=== PATIENT | female | born 1980 | race Caucasian/White ===

== ENCOUNTER 2018-02-20 00:21 | Outpatient (CLI) | payer OTHER, SELFPAY ==
--- NOTE | 2018-02-20 10:15 | DI.CT_ITS ---
SYMPTOM/DIAGNOSIS: ? INCREASE IN SIZE OF FIBROID, RENAL CYST, N28.1, D25.[address]: Comparison is made with pelvic ultrasound dated 01/13/16. Images were performed from the lung bases through the ischial tuberosities after IV and oral contrast. There is a small hiatal hernia. The lung bases are clear. The patient is status post cholecystectomy. The liver, spleen, pancreas and adrenals are unremarkable. There is a cyst in the right kidney mid portion which appears simple by CT. A septation was visible by ultrasound. There is bilateral mild to moderate hydronephrosis. The findings are likely secondary to a large uterine fibroid measuring approximately 10 cm. in diameter. An IUD is noted. The ovaries are unremarkable. The bladder appears normal. The bowel is unremarkable. IMPRESSION: Right renal cyst appears simple by CT. There is bilateral hydronephrosis secondary to a large uterine fibroid.
[2018-02-20] MEDS: Omnipaque 350 MG/ML 100 ML BTL IJ (10:23)
[2018-02-20] MEDS: Breeza Beverage 473 ML BTL PO (10:24)
[2018-02-20] MEDS: Omnipaque 350 MG/ML 50 ML BTL PO (10:24)
== END 2018-02-20 00:41 ==
PROVIDERS: PCP Internal Medicine; Visit Provider Advanced Practice Midwife
DX: N28.1 Cyst of kidney, acquired (principal); N13.30 Unspecified hydronephrosis; D25.9 Leiomyoma of uterus, unspecified
CPT/HCPCS: 74177; J3490; Q9967

== ENCOUNTER 2018-06-23 10:35 | Outpatient (REF) | payer SELFPAY ==
[2018-06-23 19:35] LABS: HCT 45.6 % (36.0-46.0); Mean Corp. HGB Concentration 32.9 g/dL (32.0-36.0); Mean Corpuscular Hemoglobin 29.9 pg (27.0-33.0); Mean Corpuscular Volume 90.8 fL (80-95); Mean Platelet Volume 11.1 fL (8.0-11.0); Platelet Count 259 x1000/uL (130-400); RBC 5.02 m/cumm (4.00-5.20); RBC Distribution Width 14.6 % (11.7-14.6); White Blood Cell Count 8.85 k/cumm (4.4-10.8)
[2018-06-23 19:57] LABS: Anion Gap 9.8 mmol/L (3-11); BUN 10 mg/dL (7-18); CO2 29.2 mmol/L (21.0-32.0); CREATININE 0.75 mg/dL (0.55-1.02); Calcium 8.9 mg/dL (8.5-10.1); Chloride 104 mmol/L (98-107); Glucose 88 mg/dL (70-100); Potassium 3.6 mmol/L (3.5-5.1); Sodium 143 mmol/L (136-145); TSH 2.09 uIU/mL (0.358-3.74)
[2018-06-23 20:21] LABS: Troponin I < 0.02 ng/mL (0.00-0.06)
== END 2018-06-23 10:55 ==
LOC: NCHCN 10:35
PROVIDERS: PCP Internal Medicine; Visit Provider Nurse Practitioner Family
DX: R07.89 Other chest pain (principal); R53.83 Other fatigue
CPT/HCPCS: 80048; 85027; 84443; 84484

== ENCOUNTER 2018-07-28 11:58 | Outpatient (CLI) | payer SELFPAY ==
--- NOTE | 2018-07-31 13:14 | HOLTER_ITS ---
Date of Report: July 31, 2018 48-HOUR STUDY Baseline Rhythm: Sinus Rare single PAC. Three bursts SVT, longest 4-beat duration, fastest 145 bpm. No atrial fibrillation . Rare single PVC. One burst nonsustained VT, 4-beat duration at 145 bpm. No bradycardia. No symptoms. Average heart rate 71 bpm, range 54-138 bpm.
--- NOTE | 2018-08-04 12:09 | HOLTER_ITS ---
HOLTER MONITOR DATE OF DICTATION August 04, 2018 48-hour study Baseline rhythm was sinus rhythm. Rare single PAC. 2 bursts SVT, longest 4-beat duration, fastest 134 beats per minute. No atrial fibrillation. Rare single PVC. 1 burst nonsustained VT, 4 beat duration at 145 beats per minute. No bradycardia. No symptoms. Average heart rate 71 beats per minute, range 54-138 beats per minute. Estuardo Servin M.D. SANA/osmani T-08/04/18
== END 2018-07-28 12:18 ==
PROVIDERS: PCP Internal Medicine; Visit Provider Nurse Practitioner Family
DX: R07.89 Other chest pain (principal); I47.1 Supraventricular tachycardia; I47.2 Ventricular tachycardia
CPT/HCPCS: 93225

== ENCOUNTER 2018-07-30 14:34 | Outpatient (CLI) | payer SELFPAY | END 2018-07-30 14:54 | PROVIDERS: PCP Internal Medicine; Visit Provider Nurse Practitioner Family | DX: R07.89 Other chest pain (principal); I47.1 Supraventricular tachycardia; I47.2 Ventricular tachycardia | CPT/HCPCS: 93226 ==

== ENCOUNTER 2018-08-14 00:48 | Outpatient (CLI) | payer OTHER, SELFPAY ==
--- NOTE | 2018-08-14 10:35 | MERGE_ITS ---
*[facility]* *[facility]* [address] [place] [address] Date of study: 08/14/2018 Transthoracic Echocardiography M-mode, complete 2D, complete spectral Doppler, and color Doppler *STUDY CONCLUSIONS* Summary: 1. Left ventricle: The cavity size was normal. Systolic function was normal. The estimated ejection fraction was 60-65%. Diastolic parameters were normal. There was no evidence of elevated ventricular filling pressure by Doppler parameters. 2. Right ventricle: The cavity size was normal. Wall thickness was normal. Systolic function was normal. 3. Atrial septum: No defect or patent foramen ovale was identified. 4. Pulmonary arteries: Pulmonary systolic pressure was in the range of 20mm Hg to 30mm Hg. 5. Inferior vena cava: The vessel was patent and normal in size. The respirophasic diameter changes were in the normal range (greater than or equal to 50%), consistent with normal central venous pressure. *PATIENT PRESENTATION* Height: 162.6cm ((64in) ) S/D Pressure: 112 / 52 Weight: 102.1kg ((224.5lb) ) BSA: 2.2m^2 Test start time: 10:45 AM. Test stop time: 11:45 AM. REFERRING Estuardo Servin MD PERFORMING Unknown PERFORMING [facility] ENTRY LEVEL JAVA DEVELOPER RT Regina (R)(CT), CS CONSULTING Claudia Valenzuela ORDERING Claudia Valenzuela REFERRING Claudia Valenzuela *PROCEDURE DATA* Procedure information: The patient was identified by two identifiers. This study was interpreted by [facility]. Pertinent images and digital data are archived for permanent storage and are available for subsequent review. No prior study was available for comparison. Study status: Routine. Transthoracic echocardiography. M-mode, complete 2D, complete spectral Doppler, and color Doppler. A Transthoracic Echocardiogram was performed. Scanning was performed from the parasternal, apical, subcostal, and suprasternal notch acoustic windows. Images were obtained using an [id number] cardiac ultrasound machine. Image quality was adequate. Study completion: The patient tolerated the procedure well. History: PMH: Systolic heart murmur R01.1. *CARDIAC ANATOMY* Left ventricle: The cavity size was normal. Systolic function was normal. The estimated ejection fraction was 60-65%. The tissue Doppler parameters were normal. Diastolic parameters were normal. There was no evidence of elevated ventricular filling pressure by Doppler parameters. Aortic valve: Trileaflet. Doppler: There was no stenosis. VTI ratio of LVOT to aortic valve: 0.91. Valve area (VTI): 2.7cm^2. Indexed valve area (VTI): 1.2cm^2/m^2. Peak velocity ratio of LVOT to aortic valve: 0.9. Valve area (Vmax): 2.7cm^2. Indexed valve area (Vmax): 1.2cm^2/m^2. Mean velocity ratio of LVOT to aortic valve: 0.88. Valve area (Vmean): 2.6cm^2. Indexed valve area (Vmean): 1.2cm^2/m^2. Mean gradient (S): 5.6mm Hg. Peak gradient (S): 8.7mm Hg. Aorta: Aortic root: The aortic root was normal in size. Ascending aorta: The ascending aorta was normal in size. Mitral valve: Doppler: There was no evidence for stenosis. There was no significant regurgitation. Valve area by pressure half-time: 3.6cm^2. Indexed valve area by pressure half-time: 1.6cm^2/m^2. Left atrium: The atrium was normal in size. Atrial septum: No defect or patent foramen ovale was identified. Right ventricle: The cavity size was normal. Wall thickness was normal. Systolic function was normal. Pulmonic valve: Doppler: There was no evidence for stenosis. There was mild regurgitation. Peak gradient (S): 4.3mm Hg. Tricuspid valve: Doppler: There was mild regurgitation. Pulmonary artery: Poorly visualized. Pulmonary systolic pressure was in the range of 20mm Hg to 30mm Hg. Right atrium: The atrium was normal in size. 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 Pericardium: There was no pericardial effusion. Systemic veins: Inferior vena cava: Well visualized. The vessel was patent and normal in size. The respirophasic diameter changes were in the normal range (greater than or equal to 50%), consistent with normal central venous pressure. Baseline ECG: Bradycardia. Measurements Left ventricle Value Reference LV ID, ED, PLAX 4.9 cm 3.5 - 6.0 LV ID, ES, PLAX 3.3 cm 2.1 - 4.0 LV PW thickness, ED, PLAX 0.9 cm LV end-diastolic volume, 1-p A2C 103 ml LV ejection fraction, 1-p A2C 67 % LV end-diastolic volume, 1-p A4C 104 ml LV ejection fraction, 1-p A4C 62 % LV e', lateral 0.141 m/sec LV E/e', lateral 5 LV e', medial 0.096 m/sec LV E/e', medial 7 LV e', average 0.119 m/sec LV E/e', average 6 Ventricular septum Value Reference IVS thickness, ED, PLAX 1.1 cm LVOT Value Reference LVOT ID, A-P 2.0 cm LVOT area 3 cm^2 LVOT peak velocity, S 1.33 m/sec LVOT mean velocity, S 1.01 m/sec LVOT VTI, S 31.1 cm LVOT peak gradient, S 7.1 mm Hg LVOT mean gradient, S 4.4 mm Hg Stroke volume (SV), LVOT DP 93 ml Stroke index (SV/bsa), LVOT DP 42 ml/m^2 Aortic valve Value Reference Aortic valve peak velocity, S 1.5 m/sec Aortic valve mean velocity, S 1.15 m/sec Aortic valve VTI, S 34.0 cm Aortic mean gradient, S 5.6 mm Hg Aortic peak gradient, S 8.7 mm Hg VTI ratio, LVOT/AV 0.91 Aortic valve area, VTI 2.7 cm^2 Velocity ratio, peak, LVOT/AV 0.9 Aortic valve area, peak velocity 2.7 cm^2 Velocity ratio, mean, LVOT/AV 0.88 Aortic valve area, mean velocity 2.6 cm^2 Aortic valve area/bsa, mean velocity 1.2 cm^2/m^2 Aorta Value Reference Aortic root ID, ED 2.8 cm Ascending aorta ID, A-P, S 3.0 cm Left atrium Value Reference LA ID, A-P, ES 3.6 cm LA ID/bsa, A-P 1.6 cm/m^2 <=2.2 LA area, ES, A4C 22.1 cm^2 8.8 - 23.4 LA area, ES, A2C 19 cm^2 LA volume/bsa, ES, 1-p A4C 36 ml/m^2 LA volume, ES, 2-p 67 ml LA volume/bsa, ES, 2-p 30 ml/m^2 LA/aortic root ratio 1.3 Mitral valve Value Reference Mitral E-wave peak velocity 0.66 m/sec Mitral A-wave peak velocity 0.46 m/sec Mitral deceleration time 211 ms 150 - 230 Mitral pressure half-time 61 ms Mitral E/A ratio, peak 1.45 Mitral valve area, PHT, DP 3.6 cm^2 Pulmonary veins Value Reference Pulmonary vein peak velocity, S 0.67 m/sec Pulmonary vein peak velocity, D 0.45 m/sec Pulmonary vein velocity ratio, peak, 1.51 S/D Pulmonary vein A-wave reversal peak 0.3 m/sec velocity Pulmonary vein A-wave reversal 149 ms duration Tricuspid valve Value Reference Tricuspid regurg peak velocity 2.4 m/sec Tricuspid peak RV-RA gradient 22.8 mm Hg Right atrium Value Reference RA area, ES, A4C 14.7 cm^2 8.3 - 19.5 Pulmonic valve Value Reference Pulmonic peak gradient, S 4.3 mm Hg Legend: (L) and (H) tyrell values outside specified reference range. I have personally reviewed the images and have reviewed and edited the reported findings. Electronically signed by Estuardo Servin MD 08/14/2018 18:19
== END 2018-08-14 01:08 ==
PROVIDERS: PCP Internal Medicine; Visit Provider Nurse Practitioner Family
DX: R01.1 Cardiac murmur, unspecified (principal); R53.83 Other fatigue
CPT/HCPCS: 93306

== ENCOUNTER 2019-04-16 01:26 | Outpatient (CLI) | payer OTHER, SELFPAY ==
--- NOTE | 2019-04-16 12:57 | DI.US_ITS ---
EXAM: US PELVIS TRANSVAGINAL CLINICAL HISTORY: interval change of fibroid uterus D25.9 LEIOMYOMA OF UTERUS, Z97.5 IUD TECHNIQUE: Ultrasound performed using standard protocol. Cardiac from 08/14/2018 FINDINGS: Pelvic ultrasound performed transabdominal and transvaginally. There is a large posterior fundal tejon rine fibroid, 12 cm maximal diameter, incompletely visualized due to its size. There is an IUD which appears to lie in the lower uterine segment endometrial cavity. Ovaries show a normal follicular appearance. No free fluid identified in the cul-de-sac. Limited sc anning of the kidneys is unremarkable. IMPRESSION: Large uterine fibroid, this measures 12 cm in greatest diameter on today's examination as compared to 6-7 cm in diameter on prior study of 2016.
== END 2019-04-16 01:46 ==
PROVIDERS: PCP Internal Medicine; Visit Provider Obstetrics & Gynecology Gynecology
DX: D25.9 Leiomyoma of uterus, unspecified (principal); Z97.5 Presence of (intrauterine) contraceptive device
CPT/HCPCS: 76830; 76856

== ENCOUNTER 2019-05-26 10:52 | Outpatient (CLI) | payer OTHER, SELFPAY ==
--- NOTE | 2019-05-26 11:42 | PDOC.ANES ---
Date of service: 05/26/19 Time of Service: 11:42 Anesthesia Note Report Anesthesia Note: Pt. seen in preop clinic. She had onset of cough/cold symptoms without fever since Saturday. Plan is to postpone her until 2 weeks post resolution of symptoms. Surgeon aware.
== END 2019-05-26 11:12 ==
PROVIDERS: PCP Internal Medicine; Visit Provider Obstetrics & Gynecology Gynecology
DX: Z01.818 Encounter for other preprocedural examination (principal)

== ENCOUNTER 2019-09-14 03:13 | Outpatient (CLI) | payer OTHER, SELFPAY ==
[2019-09-14 10:58] LABS: Abs Immature Grans 0.01 k/cumm (0.0-0.09); Absolute Basophil Count 0.01 k/cumm (0.0-0.2); Absolute Eosinophil Count 0.13 k/cumm (0.0-0.7); Absolute Lymphocyte Count 2.18 k/cumm (1.2-3.4); Absolute Monocyte Count 0.61 k/cumm (0.11-0.7); Basophils % 0.1; Eosinophils % 1.5; HCT 42.3 % (36.0-46.0); HGB 14.5 g/dL (12.0-15.5); Immature Grans % 0.1 %; Lymphocytes % 25.8; Mean Corp. HGB Concentration 34.3 g/dL (32.0-36.0); Mean Corpuscular Hemoglobin 30.3 pg (27.0-33.0); Mean Corpuscular Volume 88.5 fL (80-95); Mean Platelet Volume 10.3 fL (8.0-11.0); Monocytes % 7.2; Neutrophils % 65.3; Platelet Count 239 x1000/uL (130-400); RBC 4.78 m/cumm (4.00-5.20); RBC Distribution Width 14.4 % (11.7-14.6); White Blood Cell Count 8.44 k/cumm (4.4-10.8)
[2019-09-14 11:47] LABS: Anion Gap 7.6 mmol/L (3-11); BUN 14 mg/dL (7-18); CO2 26.4 mmol/L (21.0-32.0); CREATININE 0.73 mg/dL (0.55-1.02); Calcium 8.7 mg/dL (8.5-10.1); Chloride 105 mmol/L (98-107); Glucose 94 mg/dL (74-106); HCG Quant, Pregnancy < 1 mIU/mL (1-3); Potassium 4.2 mmol/L (3.5-5.1); Sodium 139 mmol/L (136-145)
== END 2019-09-14 03:33 ==
PROVIDERS: PCP Internal Medicine; Visit Provider Obstetrics & Gynecology Gynecology
DX: D25.1 Intramural leiomyoma of uterus (principal); Z01.818 Encounter for other preprocedural examination; Z01.812 Encounter for preprocedural laboratory examination
CPT/HCPCS: 36415; 80048; 86850; 86900; 86901; 84702; 85025

== ENCOUNTER 2019-09-14 08:35 | Outpatient (CLI) | payer OTHER, SELFPAY ==
[2019-09-15 00:13] LABS: COVID-19 RT-PCR UVMMC Result Negative (Negative)
== END 2019-09-14 08:55 ==
PROVIDERS: Obstetrics & Gynecology; PCP Internal Medicine; Visit Provider Obstetrics & Gynecology Gynecology
DX: Z01.818 Encounter for other preprocedural examination (principal); Z11.59 Encounter for screening for other viral diseases
CPT/HCPCS: U0003

== ENCOUNTER 2019-09-16 15:13 | Observation (INO) | payer OTHER, SELFPAY ==
[2019-09-16] VITALS (30 sets, daily range): BP systolic 73–126; BP diastolic 32–78; PULSE 47–85; RESP 9–18; TEMP 35.6–36.6; O2SAT 95–100
[2019-09-16] MEDS: Lactated Ringers 1,000 ML 125 ML IV ×3 (08:08→14:42)
[2019-09-16] MEDS: Bupivacaine 0.25% Pres-Free 30 ML VIAL (13:17)
--- NOTE | 2019-09-16 13:35 | UTER_PTH ---
PATIENT: Maria D Valdez LOC: U#:[id number] AGE/SX: 38/F ROOM: RE09/16/[address]: Teresa Jimenez : 1980 BED: A DIS: 09/18/2019 SPEC #: [id number] RECD: 09/16/19 16:16 STATUS: ARACELI REAlesha #: [id number] LILIA: 09/16/19 13:[address]: Teresa Jimenez DEPT: Surgical Specimen RECD BY: Gladys Yañez ENTERED: 09/16/19 16:16 SP TYPE: UTER OTHR DR: Cisco Rendon Tissues: 1 - UTERUS W OR W/O OVARIES(NOT TUMOR/PROLAPSE) Procedures: GROSS AND MICRO LEVEL 5 Comments: [id number]
--- NOTE | 2019-09-16 14:30 | DI.RAD_ITS ---
EXAM: 2D digital imaging was performed. CLINICAL HISTORY: INCORRECT COUNT. COMPARISON: No exams were available for comparison TECHNIQUE: Supine views of the abdomen performed. FINDINGS: The bowel gas pattern is nonspecific without evidence of obstruction. No radiopaque foreign bodies a re seen in the abdomen. Mild degenerative changes are seen in the spine. IMPRESSION: No radiopaque foreign bodies. DATA REPOSITORY: RADIATION DOSE DELIVERED:
[2019-09-16] MEDS: Lactated Ringers 1,000 ML 150 ML IV ×3 (15:41→21:41)
--- NOTE | 2019-09-16 19:08 | W.PM.OP ---
Date of service: 09/16/19 Time of Service: 19:08 Operative Note Operative Note DATE OF PROCEDURE: 09/16/19 PRE-OP DIAGNOSIS: fibroid uterus, abnormal uterine bleeding POST-OP DIAGNOSIS: same PROCEDURE: Attempted vaginal hysterectomy converted to transabdominal hysterectomy SURGEON: Teresa Jimenez RESPIRATORY THERAPY MANAGER: Navin Hernandez ANESTHESIA: GETA and spinal ESTIMATED BLOOD LOSS: 800 PATHOLOGY: other (Uterus cervix and attached fallopian tubes, anticipated intracavitary IUD) COMPLICATIONS: Other (Final instrument count was not correct. Abdominal/pelvic x-ray was negative for retained instruments.) Patient's condition: stable Indications: 38yo female with a history of a symptomatic fibroid uterus irregular uterine bleeding not responding to placement of a Mirena IUD. Patient requested definitive treatment. Findings: Enlarged uterus approximately 4 fingerbreadths below the umbilicus with adequate uterine descent on bimanual exam. Nl appearing ovaries. No evidence of IUD string at the cervical loss. Procedure Description: Patient was brought to the operating room where she is placed in the sitting position and spinal anesthesia was administered without difficulty. She was then placed in the dorsal supine position and general endotracheal anesthesia was administered. She was then placed in the dorsal lithotomy position in yellowfin stirrups prepped and draped in the usual sterile fashion. Sequential compression devices were in place and preoperative antibiotics were administered and a Arteaga catheter was inserted to gravity drainage. A surgical timeout was performed. A weighted vaginal speculum was placed into the vagina and the cervix was circumferentially infiltrated with 1% lidocaine with epinephrine and the anterior and posterior cervix grasped with Juno clamps. The cervix was circumferentially incised using Bovie electrocautery and a dissection of the bladder off of the pubovesical cervical fascia anteriorly using a moistened sponge and Metzenbaum scissors was attempted but we were unable to enter the anterior cul-de-sac the same procedure was performed posteriorly in the posterior cul-de-sac entered sharply without difficulty and in the incision was placed a long billed weighted vaginal speculum. We were able to clamp transect and suture ligate the uterosacral ligaments bilaterally using 0 Vicryl suture. Hemostasis was difficult to obtain with Zeppelin clamps however we were able to mobilize the body of the cervix from the broad ligament enough to allow access to the anterior cul-de-sac which was entered bluntly and the bladder retracted away from the operative field using a [place] clamp. The left broad ligament was then clamped and cauterized using the LigaSure device but you are on able to sufficiently visualize the remaining broad ligament to assure satisfactory clamp placement. The bleeding from both the right and left broad ligaments dictated that the vaginal approach be stopped and a transabdominal approach be initiated. The patient was then placed in the dorsal supine position with SCDs in place she was prepped for an abdominal procedure and draped in sterile fashion. The operators gowns and gloves were changed. After infiltration of the subcutaneous tissue with percent Marcaine a Pfannenstiel skin incision was made with a scalpel approximately 2 cm above the pubic symphysis and the underlying sub-cutaneous tissue was dissected using Bovie electrocautery to the level of the rectus fascia which was then nicked in the midline with Bovie electrocautery and the incision was extended laterally with care taken to tent up the fascia away from the underlying rectus muscles. The rectus muscles were bluntly in the midline and the peritoneum was entered bluntly and the incision was extended using blunt technique. An Josiah self retaining abdominal retractor was placed and the fibroid uterus was then delivered through the self-retaining retractor. The pelvis was copiously suctioned for clots. An inspection of the bladder flap showed it to be intact and a stable peritoneal hematoma was present bilaterally along the course of the broad ligament attachments at the site of the previous vaginal dissection. The LigaSure device was used to clamp, cauterize and transected the left uterine ovarian ligament allowing access to the left round ligament which was then clamped transected and suture-ligated. The left broad ligament low that point had already been transected and was hemostatic. The contralateral right uterine ovarian ligament was clamped cauterized and transected using LigaSure device and the remaining remnants of the broad ligament were then clamped cauterized and transected freeing the uterus and cervix with attached fallopian tubes. The specimen was then passed off of the operative field. The Josiah self-retaining retractor was then removed and a Lakshmi self-retaining retractor was placed and the bowel packed away with moist laparotomy sponges. The vaginal cuff was grasped with [place] clamps and reapproximated at the lateral margins using 0 Vicryl suture and then the remaining cuff was then closed with interrupted sutures of 0 Vicryl with excellent hemostasis achieved. The pelvis was then copiously irrigated with normal saline. There was no evidence of active bleeding. The laparotomy sponges were removed along with the the Lakshmi self-retaining retractor. Once again the pelvis was copiously irrigated with normal saline. No active bleeding was noted. The peritoneum was reapproximated with a running suture of 2-0 Vicryl the rectus fascia closed with a running suture of 0 Vicryl extending from the lateral margins and overlapping in the midline. Subcutaneous tissue was reapproximated with running suture of 2-0 Vicryl and the skin was closed with a 3-0 Vicryl suture in a subcuticular fashion. A bladder cystoscopy was performed with brisk E flux of indigocarmine noted from both ureteral orifices. All sponge and lap counts were correct x2. The instrument count showed an absence of 2 needle drivers and the decision was made to proceed with a abdominal and pelvic x-ray which showed no evidence of retained instruments or a ectopic IUD. The patient was then awakened extubated and transported recovery area in stable condition.
[2019-09-16 19:33] LABS: HGB 11.6 g/dL (12.0-15.5); Mean Corp. HGB Concentration 32.2 g/dL (32.0-36.0); Mean Corpuscular Hemoglobin 29.2 pg (27.0-33.0); Mean Corpuscular Volume 90.7 fL (80-95); Platelet Count 224 x1000/uL (130-400); RBC 3.97 m/cumm (4.00-5.20); RBC Distribution Width 14.4 % (11.7-14.6); White Blood Cell Count 14.28 k/cumm (4.4-10.8)
[2019-09-16] MEDS: Docusate Sodium 100 MG CAP PO (19:38)
--- NOTE | 2019-09-16 21:36 | PGE_ITS ---
Date of Service Date of service: 09/16/19 Time of Service: 21:36 Assessment and Plan Assessment and plan (1) Postop check: Status: Acute Assessment and plan: Blood pressure remains low patient's other vital signs are stable and urine output is excellent. We will continue to maintain IV fluids at 150 cc an hour. Repeat CBC in the a.m. (2) History of total abdominal hysterectomy: Status: Acute Assessment and plan: Attempt at vaginal hysterectomy unsuccessful manuelon cornad to the distortion of the anatomy from the patient's fibroid. Currently satisfactory recovery from abdominal hysterectomy. Subjective Subjective Patient reports: no new complaints and tolerating a regular diet Interval history since last seen: Postop check after total abdominal hysterectomy with bilateral salpingectomy earlier today. Patient's estimated blood loss 800 cc in the time of surgery. Her post op course has been complicated by low blood pressure with her diastolic blood pressure in the 50 range systolic in the 95 range. No tachycardia and urine output has been copious. She denies pain other than some mild abdominal discomfort. Exam Const General: no acute distress Orientation: alert, awake and oriented x3 (Visiting with her ) Resp Effort & Inspection: normal respiratory effort GI Inspection: scar (Incision clean dry and intact skin glue in place) Palpation: soft, not firm, no guarding, no masses and not rigid General: deferred Skin General skin exam: no rashes or lesions noted Extrem General: normal to inspection, full ROM and capillary refill normal Psych Appearance: grossly normal Mental Status: mental status grossly normal Speech and Movement: speech and movement normal Mood: congruent mood Objective Objective Clinical Data: Abnormal lab results 09/16/19 Range/Units 19:18 WBC 14.28 H (4.4-10.8) k/cumm RBC 3.97 L (4.00-5.20) m/cumm Hgb 11.6 L D (12.0-15.5) g/dL Vital Signs Temperature 96.3 F L 09/16/19 21:20 Temperature Source Tympanic 09/16/19 21:20 Pulse 56 L 09/16/19 21:20 Pulse Rhythm Regular 09/16/19 16:30 Respiratory Rate 18 09/16/19 21:20 Respiratory Effort Non-Labored 09/16/19 16:30 Respiratory Depth Normal 09/16/19 16:30 Respiratory Pattern Normal 09/16/19 16:30 Blood Pressure 95/51 L 09/16/19 21:20 Pulse Oximetry 98 09/16/19 21:20 Respiratory End-tidal CO2 35 09/16/19 16:09 Oxygen Delivery Method Room Air 09/16/19 21:20 Oxygen Flow Rate 0 09/16/19 21:20 Pain Level 0 09/16/19 21:20 Comment 09/16/19 17:30 Intake & Output 09/15/19 09/16/19 09/16/19 23:59 11:59 23:59 Intake Total 4207.80 / 4207.80 Output Total 1800 / 1800 Balance 2407.80 / 2407.80 Weight 224 lb 10.417 oz Intake: IV 4207.80 / 4207.80 Output: Urine 900 / 900 Estimated Blood Loss 900 / 900 Other: Urine Color Yellow Green Urine Appearance Clear Clear Comment Pt.'s urine is green due to a medication administered intraoperatively. Emesis Description None Laboratory Results WBC 14.28 k/cumm (4.4-10.8) H 09/16/19 19:18 RBC 3.97 m/cumm (4.00-5.20) L 09/16/19 19:18 Hgb 11.6 g/dL (12.0-15.5) L D 09/16/19 19:18 Hct 36.0 % (36.0-46.0) 09/16/19 19:18 MCV 90.7 fL (80-95) 09/16/19 19:18 MCH 29.2 pg (27.0-33.0) 09/16/19 19:18 MCHC 32.2 g/dL (32.0-36.0) 09/16/19 19:18 RDW 14.4 % (11.7-14.6) 09/16/19 19:18 Plt Count 224 x1000/uL (130-400) 09/16/19 19:18 MPV 10.0 fL (8.0-11.0) 09/16/19 19:18
[2019-09-17] VITALS (23 sets, daily range): BP systolic 102–118; BP diastolic 67–77; PULSE 58–77; RESP 17–20; TEMP 36.4–37.2; O2SAT 97–100
[2019-09-17] MEDS: Acetaminophen 500 MG TAB PO ×2 (02:19→11:42)
[2019-09-17] MEDS: Lactated Ringers 1,000 ML 150 ML IV (03:54)
[2019-09-17] MEDS: Ketorolac 30 MG/ML VIAL IVP ×3 (05:52→19:59)
[2019-09-17 06:45] LABS: HCT 32.4 % (36.0-46.0); HGB 10.6 g/dL (12.0-15.5); Mean Corp. HGB Concentration 32.7 g/dL (32.0-36.0); Mean Corpuscular Hemoglobin 29.6 pg (27.0-33.0); Mean Corpuscular Volume 90.5 fL (80-95); Mean Platelet Volume 10.3 fL (8.0-11.0); Platelet Count 225 x1000/uL (130-400); RBC 3.58 m/cumm (4.00-5.20); RBC Distribution Width 14.3 % (11.7-14.6); White Blood Cell Count 14.72 k/cumm (4.4-10.8)
[2019-09-17] MEDS: Docusate Sodium 100 MG CAP PO ×2 (08:22→19:55)
--- NOTE | 2019-09-17 10:04 | INITIAL_ITS ---
- If Service Date Differs Date of service: 09/17/19 Time of Service: 10:04 Care Management Initial Assess REASON FOR HOSPITALIZATION:: Total Abdominal Hysterectomy PAST MEDICAL HISTORY/PAST SURGICAL HISTORY:: Medical History. Fibroid uterus (Acute). 2016. 6cm. 2018. larger - causing hydronephrosis. IUD (intrauterine device) in place (Chronic). 2016. Mirena IUD. Urinary incontinence (Chronic). sx of stress incontinence. Pt referred to Urology re: transobturator sling at time of hysterectomy. Surgical History. History of cholecystectomy (Chronic). 2017 PREVIOUS FUNCTIONAL STATUS/SOCIAL/FAMILY SUPPORTS:: Maria D lives in [place] with her and three children- all boys between the ages of 9-18. 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 She is independent at baseline. CURRENT FUNCTIONAL STATUS:: Maria D was sitting up in her chair when CM met with her. She reported that she is doing well, and that her simpson was removed, and she has been able to walk around. She stated that the MD would re evaluate her this afternoon to see if she is ready for discharge. CM will continue to follow. ADVANCE DIRECTIVES:: None on file. Has patient been provided with info about the portal/API?: No Did the patient sign up for the portal?: No CODE STATUS:: Full Code INSURANCE COVERAGE / FINANCIAL ISSUES:: [employer] CURRENT HOME/COMMUNITY SERVICES/EQUIPMENT:: Maria D does not have any equipment or services in the community. PRIMARY CARE PHYSICIAN:: Cisco Rendon POTENTIAL DISCHARGE NEEDS:: Evaluations for further needs, follow up appointm ents PATIENT/FAMILY EDUCATION NEEDS:: Review discharge instructions regarding activity levels and medications, discussion of self care needs including ask me three ANTICIPATED BARRIERS TO DISCHARGE:: None identified. TRANSPORTATION:: Via private vehicle by family. PLAN:: Anticipate Maria D will return home with no additional services once medically cleared. She will follow up with her PCP and discharge plan of care. Her will drive her home via private vehicle when ready. CM will continue to follow.
--- NOTE | 2019-09-17 10:41 | W.PM.PROGNOT ---
Date of Service Date of service: 09/17/19 Time of Service: 10:41 Assessment and Plan Assessment and plan (1) History of total abdominal hysterectomy: Status: Acute Assessment and plan: Satisfactory postop recovery. Plan is to discontinue Simpson catheter, advance and have activity. If she is tolerating a regular diet and oral pain medication she can conceivably be discharged home this evening. We will follow-up with the patient this afternoon to assess her ability to perform ADLs. Subjective Subjective Patient reports: still having pain (mild), tolerating a regular diet, voiding w/o difficulty (simpson has been removed. Pt will be assisted with oob to void) and no bowel movement Interval history since last seen: BP was low and patient received 1000cc crystaloid and IV rate increased to 150cc/hr overnight. BP stable. Pt has been comfortable with mild abdominal/incisional pain treated with IV Toradol. UO has been stable overnight. Exam Const General: no acute distress Orientation: alert, awake and oriented x3 Resp Effort & Inspection: normal respiratory effort Auscultation: clear to auscultation bilaterally Cardio Rate: regular rate Rhythm: regular rhythm GI Inspection: normal to inspection, no abdominal wall ecchymosis and scar (Intact without induration. Skin glue in place) Palpation: soft General: deferred Extrem General: normal to inspection, full ROM and capillary refill normal (SCDs in place) Psych Appearance: grossly normal Mental Status: mental status grossly normal Speech and Movement: speech and movement normal Objective Objective Clinical Data: Abnormal lab results 09/16/19 09/17/19 Range/Units 19:18 06:35 WBC 14.28 H 14.72 H (4.4-10.8) k/cumm RBC 3.97 L 3.58 L (4.00-5.20) m/cumm Hgb 11.6 L D 10.6 L (12.0-15.5) g/dL Hct 32.4 L (36.0-46.0) % Vital Signs Temperature 99.0 F 09/17/19 07:00 Temperature Source Temporal Artery Scan 09/17/19 07:00 Pulse 63 09/17/19 07:00 Pulse Rhythm Regular 09/17/19 08:24 Respiratory Rate 18 09/17/19 08:12 Respiratory Effort Non-Labored 09/17/19 08:24 Respiratory Depth Normal 09/17/19 08:24 Respiratory Pattern Normal 09/17/19 08:24 Blood Pressure 114/75 09/17/19 07:00 Pulse Oximetry 100 09/17/19 07:00 Respiratory End-tidal CO2 35 09/16/19 16:09 Oxygen Delivery Method Room Air 09/17/19 07:00 Oxygen Flow Rate 0 09/17/19 07:00 Pain Level 4 09/17/19 07:00 Comment 09/16/19 17:30 Intake & Output 09/16/19 09/16/19 09/17/19 11:59 23:59 11:59 Intake Total 4992.20 / 4992.20 1112.5 / 1112.5 Output Total 2950 / 2950 1600 / 1600 Balance 2042.20 / 2042.20 -487.5 / -487.5 Weight 224 lb 10.417 oz Intake: IV 4992.20 / 4992.20 932.5 / 932.5 Oral 180 / 180 Output: Urine 2050 / 2050 1600 / 1600 Estimated Blood Loss 900 / 900 Other: Urine Color Yellow Indigo Yellow Green Urine Appearance Clear Clear Cloudy Comment Pt.'s urine is green due to a medication administered intraoperatively. Emesis Description None Laboratory Results WBC 14.72 k/cumm (4.4-10.8) H 09/17/19 06:35 RBC 3.58 m/cumm (4.00-5.20) L 09/17/19 06:35 Hgb 10.6 g/dL (12.0-15.5) L 09/17/19 06:35 Hct 32.4 % (36.0-46.0) L 09/17/19 06:35 MCV 90.5 fL (80-95) 09/17/19 06:35 MCH 29.6 pg (27.0-33.0) 09/17/19 06:35 MCHC 32.7 g/dL (32.0-36.0) 09/17/19 06:35 RDW 14.3 % (11.7-14.6) 09/17/19 06:35 Plt Count 225 x1000/uL (130-400) 09/17/19 06:35 MPV 10.3 fL (8.0-11.0) 09/17/19 06:35
[2019-09-17] MEDS: Lactated Ringers 1,000 ML 125 ML IV ×2 (11:07→18:14)
[2019-09-17] MEDS: Normal Saline Flush 10 ML SYR IV ×2 (14:39→19:59)
[2019-09-17] MEDS: oxyCODONE 5 mg/Acetaminophen 325 mg TAB PO ×3 (14:48→23:59)
--- NOTE | 2019-09-17 15:40 | CHAPLAIN ---
I had a short visit with Maria D, who said she was feeling comfortable. She wasn't sure when she'd be discharged, but she was in touch with family by phone.. I explained my role and offered support.
[2019-09-18] MEDS: Lactated Ringers 1,000 ML 125 ML IV ×2 (01:45→09:38)
[2019-09-18 02:00] VITALS: RESP 18; O2SAT 100
[2019-09-18 03:26] VITALS: BP 104/65; PULSE 79; RESP 17; TEMP 37.2; O2SAT 98
[2019-09-18] MEDS: oxyCODONE 5 mg/Acetaminophen 325 mg TAB PO ×2 (06:32→11:25)
[2019-09-18 07:45] VITALS: BP 104/69; PULSE 64; RESP 18; TEMP 37.1; O2SAT 100
[2019-09-18] MEDS: Docusate Sodium 100 MG CAP PO (08:16)
[2019-09-18] MEDS: Bisacodyl 10 MG SUPP PR (09:39)
--- NOTE | 2019-09-18 09:48 | W.PM.PROGNOT ---
Date of Service Date of service: 09/17/19 Time of Service: 16:39 Assessment and Plan Assessment and plan (1) History of total abdominal hysterectomy: Status: Acute (2) Postop check: Status: Acute Assessment and plan: Patient is postop discomfort currently is to acute congestive I discharged home. Will provide Toradol and Percocet overnight and reconsider discharge plans in the morning. Subjective Subjective Patient reports: still having pain (Abdominal pain bilateral shoulder pain has increased), tolerating a regular diet, voiding w/o difficulty and no bowel movement Interval history since last seen: Patient reports being out of bed today. She has been having increased abdominal pain and bilateral shoulder discomfort. She attributes her discomfort at the spinal analgesia wearing off. I do not feel that she is a candidate for discharged home tonight and will remain hospitalized for pain symptoms and to make sure that she is able to perform ADLs comfortably when at home. Exam Const General: no acute distress Orientation: alert, awake and oriented x3 Resp Effort & Inspection: normal respiratory effort GI Inspection: abdominal wall ecchymosis (Left lateral margin of Pfannenstiel skin incision) and scar (Well approximated no evidence of redness or induration) Auscultation: normal bowel sounds General: deferred Extrem General: normal to inspection and capillary refill normal Psych Appearance: grossly normal Mental Status: mental status grossly normal Speech and Movement: speech and movement normal Objective Objective Clinical Data: Vital Signs Temperature 98.8 F 09/18/19 07:45 Temperature Source Temporal Artery Scan 09/18/19 07:45 Pulse 64 09/18/19 07:45 Pulse Rhythm Regular 09/18/19 08:20 Respiratory Rate 18 09/18/19 07:45 Respiratory Effort Non-Labored 09/18/19 08:20 Respiratory Depth Normal 09/18/19 08:20 Respiratory Pattern Normal 09/18/19 08:20 Blood Pressure 104/69 09/18/19 07:45 Pulse Oximetry 100 09/18/19 07:45 Respiratory End-tidal CO2 35 09/16/19 16:09 Oxygen Delivery Method Room Air 09/18/19 07:45 Oxygen Flow Rate 0 09/18/19 07:45 Pain Level 4 09/18/19 06:32 Comment 09/16/19 17:30 Intake & Output 09/17/19 09/17/19 09/18/19 11:59 23:59 11:59 Intake Total 2112.5 / 3722.083 1609.583 / 3722.083 2864.583 / 2864.583 Output Total 1600 / 3450 1850 / 3450 500 / 500 Balance 512.5 / 272.083 -240.417 / 238.828 6381.583 / 2364.583 Intake: IV 1932.5 / 2822.083 889.583 / 2822.083 2864.583 / 2864.583 Oral 180 / 900 720 / 900 Output: Urine 1600 / 3450 1850 / 3450 500 / 500 Other: Urine Color Yellow Green Green Green Urine Appearance Cloudy Clear Clear Urine Odor Normal Normal Emesis Description Undigested Food Clear/Water Voiding Methods Toilet Toilet Laboratory Results WBC 14.72 k/cumm (4.4-10.8) H 09/17/19 06:35 RBC 3.58 m/cumm (4.00-5.20) L 09/17/19 06:35 Hgb 10.6 g/dL (12.0-15.5) L 09/17/19 06:35 Hct 32.4 % (36.0-46.0) L 09/17/19 06:35 MCV 90.5 fL (80-95) 09/17/19 06:35 MCH 29.6 pg (27.0-33.0) 09/17/19 06:35 MCHC 32.7 g/dL (32.0-36.0) 09/17/19 06:35 RDW 14.3 % (11.7-14.6) 09/17/19 06:35 Plt Count 225 x1000/uL (130-400) 09/17/19 06:35 MPV 10.3 fL (8.0-11.0) 09/17/19 06:35
[2019-09-18] MEDS: Ibuprofen 600 MG TAB PO (11:49)
[2019-09-18] MEDS: Normal Saline Flush 10 ML SYR IV (11:50)
--- NOTE | 2019-09-18 14:10 | DSE_ITS ---
Date of service: 09/18/19 Time of Service: 14:10 DS: Diagnosis Discharge Diagnosis (1) History of total abdominal hysterectomy: Status: Acute Discharge Plan Disposition Patient Disposition: HOME Condition: Fair Discharge Details Reason For Visit: TOTAL ABD HYSTERECTOMY W/ BILATERAL SAPLINGECTOMY Admit Date/Time: 09/16/19 15:13 Admit Provider: Teresa Jimenez Attending Provider: Teresa Jimenez Primary Care Provider: Cisco Rendon Hospital Course Hospital Course: Patient was admitted the morning of surgery and underwent a total abdominal hysterectomy with bilateral salpingectomy for symptomatic fibroid uterus. Estimated blood loss approximately 800 cc. Her postop course was uncomplicated I would update #2 her pain level was low enough to discharge to home where she could perform modified activities of daily living. She received suppository which allowed her to have a small bowel movement which be more comfortable. She was tolerating a regular diet voiding spontaneously and using ibuprofen 600 mg every 6 hours and Percocet 1 tablet every 6 hours for pain with satisfactory results. The plan is to have her follow-up in the office for postop check in approximately week with Dr. Jimenez a appointment time will be arranged for her and she will be notified on 09/21/2019. Home Meds and New Rx's Prescriptions: No Action acetaminophen [Tylenol Extra Strength] 500 mg tablet 1,000 mg PO Q6H PRNRF: 0 Mirena 20 mcg/24 hours (5 yrs) 52 mg intrauterine device 1 device IY ONCE RF: 0 oxycodone-acetaminophen [Percocet] 5-325 mg tablet 1 tab PO Q6H MDD 4 PRN (Reason: pain) Qty: 20 RF: 0 ibuprofen 600 MG tablet 600 mg PO Q6H PRN (Reason: Pain) Qty: 20 RF: 0 Discharge Instructions Additional Instructions: Call the office on 09/21/2019 to arrange a postop visit with Dr. Jimenez on 04/03/2019. No driving, no lifting heavy objects greater than 10 pounds and nothing in the vagina until your postop visit. Stand Alone Forms: DSU Post Gynecology Surgery Activity:: Activity as Tolerated Equipment/Supplies:: No Equipment Needed Diet:: As Tolerated Discharge Orders Discharge Orders: Discharge Order (Routine); Ordered 09/18/19 Ordered By: Teresa Jimenez DS: Summary Status at Discharge Functional status at discharge: independent ambulation Overall status at discharge: patient is progressing back to baseline Mental Status: mental status grossly normal Speech and Movement: speech and movement normal Mood: congruent mood Affect: normal affect Exam Const General: no acute distress Nutritional Appearance: obese Orientation: alert, awake and oriented x3 Resp Effort & Inspection: normal respiratory effort Auscultation: clear to auscultation bilaterally Cardio Rate: regular rate Rhythm: regular rhythm GI Inspection: scar (Incision clean dry and intact skin glue in place) Auscultation: normal bowel sounds Extrem General: normal to inspection, full ROM and capillary refill normal Psych Mental Status: mental status grossly normal Speech and Movement: speech and movement normal Mood: congruent mood Affect: normal affect DS: Data Vitals/I&O Vitals and I&O: Vital Signs Temperature 98.8 F 09/18/19 07:45 Temperature Source Temporal Artery Scan 09/18/19 07:45 Pulse 64 09/18/19 07:45 Pulse Rhythm Regular 09/18/19 08:20 Respiratory Rate 18 09/18/19 07:45 Respiratory Effort Non-Labored 09/18/19 08:20 Respiratory Depth Normal 09/18/19 08:20 Respiratory Pattern Normal 09/18/19 08:20 Blood Pressure 104/69 09/18/19 07:45 Pulse Oximetry 100 09/18/19 07:45 Respiratory End-tidal CO2 35 09/16/19 16:09 Oxygen Delivery Method Room Air 09/18/19 07:45 Oxygen Flow Rate 0 09/18/19 07:45 Pain Level 4 09/18/19 11:49 Comment 09/16/19 17:30 Intake & Output 09/17/19 09/18/19 09/18/19 23:59 11:59 23:59 Intake Total 1609.583 / 3722.083 2864.583 / 3104.583 240 / 3104.583 Output Total 1850 / 3450 2250 / 2250 Balance -240.417 / 272.083 614.583 / 854.583 240 / 854.583 Intake: IV 889.583 / 2822.083 2864.583 / 2864.583 Oral 720 / 900 240 / 240 Output: Urine 1850 / 3450 2250 / 2250 Other: Urine Color Green Yellow Urine Appearance Clear Cloudy Urine Odor Normal Normal Stool Size Small Stool Characteristics Formed Brown Emesis Description Undigested Food Clear/Water Voiding Methods Toilet Toilet [facility] Medical History (Updated 09/18/19 @ 14:11 by Teresa Jimenez MD) Fibroid uterus (Acute) 2016. 6cm 2018. larger - causing hydronephrosis IUD (intrauterine device) in place (Chronic) 2016. Mirena IUD. Urinary incontinence (Chronic) sx of stress incontinence. Pt referred to Urology re: transobturator sling at time of hysterectomy. Surgical History (Updated 09/18/19 @ 14:11 by Teresa Jimenez MD) History of cholecystectomy (Chronic) 2017 History of repair of ACL (Acute) History of total abdominal hysterectomy (Acute) With bilateral salpingectomy. Ovaries conserved. Hx of tooth extraction (Acute) Social History Smoking/Tobacco Use Status: Former Tobacco Use Quit Date: 05/17/19 Tobacco: How many years used: 10 Quit status: has quit before Alcohol Intake: current Alcohol Intake frequency: a few times a month Alcohol type: beer and hard liquor Drug use: Never Substance use type: does not use Current gender identity: female Do you feel safe at home: Yes Do you feel safe in your relationship?: Yes History History 3 Para 3 Hx # Term Pregnancies 3 Multiple births 0 Hx # Pregnancies 0 Ectopic pregnancies 0 AB induced Hx Number of Living Children 3 AB spontaneous 0
[2019-09-18 15:25] VITALS: BP 127/82; PULSE 65; RESP 18; TEMP 36.7; O2SAT 100
--- NOTE | 2019-09-18 16:05 | PDOC.CMDIS ---
- If Service Date Differs Date of service: 09/18/19 Time of Service: 16:05 LACE Index Scoring Tool - Questions: Length of Stay (in days): 2 Acuity (Admit via E.D.?): No E.D. Visits: 0 - Answers: Total Score: 2 Risk of Readmission: Low Risk Care Management Discharge Reason for Hospitalization: Total Abdominal Hysterectomy Discharge Plan: Maria D will return home with no additional services. She will follow up with her PCP and discharge plan of care. Her will drive her home via private vehicle . Patient/Family Education Needs: Review discharge instructions regarding activity levels and medications, discussion of self care needs including ask me three
== END 2019-09-18 15:56 | disposition home or self-care (01) ==
LOC: MS 16:25
PROVIDERS: Admitting Provider Obstetrics & Gynecology Gynecology; PCP Internal Medicine; Visit Provider Obstetrics & Gynecology Gynecology
PROC: 0UT9FZZ Resection of Uterus, Via Natural or Artificial Opening With Percutaneous Endoscopic Assistance (ICD-10-PCS; CPT 58150; principal; 2019-09-16 09:30)
DX: D25.9 Leiomyoma of uterus, unspecified (principal); R32 Unspecified urinary incontinence; N93.8 Other specified abnormal uterine and vaginal bleeding
CPT/HCPCS: 58150; 36415; 85027; NC; 74018; 88307; G0378; J0690; J1100; J1885; J2250; J2405; J3010

== ENCOUNTER 2019-11-01 17:38 | Emergency (ER) | payer OTHER, SELFPAY ==
--- NOTE | 2019-11-01 17:45 | DI.CT_ITS ---
EXAM: CT RENAL COLIC WO CLINICAL HISTORY: Left flank pain. TECHNIQUE: Imaging Protocol: Axial computed tomography images with coronal and sagittal reformatted images were created and reviewed. CONTRAST MATERIAL: Noncontrast Oral: no FINDINGS: ABDOMEN: Lung Bases: Normal where visualized. Liver: Normal density. No measurable mass. Gallbladder and biliary tract: Status post cholecystectomy Pancreas: Normal density, no abnormal calcifications or inflammatory process. Spleen: Normal. Kidneys: Normal size, contour and axis. No radiodense stones or obstructive uropathy. Right renal cys t. Adrenal glands: No masses seen. Abdominal Aorta: Abdominal portion non-dilated. PELVIS: Bladder: Symmetric distention, no gross wall thickening. Bowel: No obstruction or bowel wall thickening. Status post hysterectomy. Low-density lesion of the left ovary with some surrounding stranding. Unr emarkable right ovary. Bones: Within normal limits. IMPRESSION: Left ovarian cyst measuring 4 cm with mild surrounding edema. RADIATION DOSE DELIVERED: 1,195.18mGy.cm Total DLP DATA REPOSITORY: All CT scans at this facility are submitted to the National Radiology Data Registry (NRDR) Dose Index Registry (DIR) with the [employer] (A[employer]). RADIATION OPTIMIZATION: All CT scans at this facility use at least one of these dose optimization te chniques: automated exposure control; mA and/or kV adjustment per patient size (includes targeted exa ms where dose is matched to clinical indication); or iterative reconstruction.
[2019-11-01 17:47] VITALS: BP 106/89; PULSE 61; RESP 18; TEMP 37.2; O2SAT 100
[2019-11-01 17:52] LABS: Bilirubin Negative (Negative); Blood Small (Negative); Clarity Clear (Clear); Glucose 100 mg/dL (Negative); Ketones Trace mg/dL (Negative); Leukocyte Esterase Negative (Negative); Nitrite Negative (Negative); Specific Gravity >= 1.030 (1.005-1.025); Urobilinogen 0.2 EU/dL (Up TO 0.2); pH 5.5 (5-8)
--- NOTE | 2019-11-01 17:57 | ED.GENADUL_ITS ---
Discharge Plan Disposition Patient Disposition: HOME Condition: Improving Discharge Details Chief Complaint: FlankPain Clinical Impression: Ureteral colic Primary Care Provider: Cisco Rendon ED Provider: Tiburcio Rodney Home Meds and New Rx's Prescriptions: Continued acetaminophen [Tylenol Extra Strength] 500 mg tablet 1,000 mg PO Q6H PRNRF: 0 oxycodone-acetaminophen [Percocet] 5-325 mg tablet 1 tab PO Q6H MDD 4 PRN (Reason: pain) Qty: 20 RF: 0 ibuprofen 600 MG tablet 600 mg PO Q6H PRN (Reason: Pain) Qty: 20 RF: 0 Discharge Instructions Instructions: Kidney Stones (ED), Renal Colic (ED) Additional Instructions: Home to rest tonight. Small, frequent sips of fluids to maintain hydration. Please take ibuprofen 600 mg every 6 hours as needed for pain. May use your previously prescribed Percocet as needed for severe/breakthrough pain. Return if develop a fever, vomiting, or any other acute concerns. Please follow-up with Dr. Jimenez in clinic on as planned. Referrals: Teresa Jimenez MD [ [facility] STAFF PHYSICIAN] - Medical Decision Making Healthy and pleasant 39-year-old female presents from home with hours of left flank pain that radiates to her abdomen. She is afebrile and well-appearing. She is tender in the abdomen and left flank but does not exhibit rebound tenderness. Differential diagnosis includes renal colic versus pyelonephritis. Patient IV access established, given a fluid bolus, ketorolac, referred for laboratory testing and CT images. Urinalysis reveals hematuria. CT shows minor dilatation of the left ureter, no obstructing calculus seen per radiology but I do question a small calculus at the left ureteral orifice, best seen on image 554. There is a new approximately 4 cm left ovarian follicle present. Patient's presentation with left flank pain that radiates to her abdomen is most consistent with renal colic. She has pre-standing follow-up with Dr. Jimenez in clinic this week. HPI General Mode of arrival: ambulatory . Date/Time Provider Initiated Documentation: 11/01/19 17:39 . Limitations to Documentation: no limitations . Information obtained by: patient . History of Present Illness 39 year old F presents to the emergency department with the chief complaint of Left flank pain beginning at 3 AM, described as moderate, Quality is described as dull, and is localized to the back and left. Patient abdomen. Patient started experiencing this hour(s) and it has been constant. No relieving factors improve symptom(s), No exacerbating factors reported . Patient did receive the following treatments prior to arrival, none Related Data Home Medications Medication Instructions Recorded Confirmed ibuprofen 600 mg PO Q6H PRN #20 tab 11/30/16 11/01/19 acetaminophen 500 mg tablet 1,000 mg PO Q6H PRN tab 04/16/19 11/01/19 oxycodone-acetaminophen 5 mg-325 1 tab PO Q6H PRN #20 tab MDD 4 09/18/19 11/01/19 mg tablet Previous Rx's Medication Instructions Recorded ibuprofen 600 mg PO Q6H PRN #20 tab 11/30/16 oxycodone-acetaminophen 5 mg-325 1 tab PO Q6H PRN #20 tab MDD 4 09/18/19 mg tablet Allergies Allergy/AdvReac Type Severity Reaction Status Date / Time No Known Allergies Allergy Verified 10/05/19 10:30 General Stated Complaint: FlankPain ALEX: 3 Review of Systems Narrative: 6 systems reviewed and otherwise negative [facility] Medical History Fibroid uterus (Acute) 2016. 6cm 2018. larger - causing hydronephrosis IUD (intrauterine device) in place (Chronic) 2016. Mirena IUD. Urinary incontinence (Chronic) sx of stress incontinence. Pt referred to Urology re: transobturator sling at time of hysterectomy. Surgical History (Updated 09/18/19 @ 14:11 by Teresa Jimenez MD) History of cholecystectomy (Chronic) 2017 History of repair of ACL (Acute) History of total abdominal hysterectomy (Acute) With bilateral salpingectomy. Ovaries conserved. Hx of tooth extraction (Acute) Family History Grandfather Colon cancer Social History Smoking/Tobacco Use Status: Former Tobacco Use Quit Date: 05/17/19 Tobacco: How many years used: 10 Quit status: has quit before Alcohol Intake: current Alcohol Intake frequency: a few times a month Alcohol type: beer and hard liquor Drug use: Never Substance use type: does not use Current gender identity: female Do you feel safe at home: Yes Do you feel safe in your relationship?: Yes Female Reproductive History Menstrual control method: progestin IUCD History History 3 Para 3 Hx # Term Pregnancies 3 Multiple births 0 Hx # Pregnancies 0 Ectopic pregnancies 0 AB induced Hx Number of Living Children 3 AB spontaneous 0 Exam Narrative Exam Narrative: GEN: awake, alert, oriented 3. Pleasant, well groomed, interactive. HEAD: Normocephalic, atraumatic ENT: Mucous membranes moist, oropharynx unremarkable, External ear exam unremarkable EYES: PERRL, EOMI NECK: Full ROM, no ABHIJIT, no menigismus CHEST/RESP: Nontender, clear to auscultation bilateral, no wheeze/rhonchi/rales CARDIOVASCULAR: RRR, no murmur, rub jenna. 2+ Rad pulse bilateral ABDOMEN: Soft, left lower quadrant tender to palpation without rebound or guarding, no mass. +Bowel sounds Back: Left flank tenderness to percussion EXT: Full ROM, no edema, no rash Neuro: Grossly normal neurologic exam, conversant, interactive. Psych: Speech fluent, thoughts congruent, affect normal Course Vital Signs Vital signs: Vital Signs Temperature 37.2 C 11/01/19 17:47 Pulse 61 11/01/19 17:47 Respiratory Rate 18 11/01/19 17:47 Blood Pressure 106/89 11/01/19 17:47 Pulse Oximetry 100 11/01/19 17:47 Temperature 37.2 C 11/01/19 17:47 Temperature Source Skin 11/01/19 17:47 Pulse 61 11/01/19 17:47 Respiratory Rate 18 11/01/19 17:47 Respiratory Effort Non-Labored 11/01/19 17:51 Blood Pressure 106/89 11/01/19 17:47 Blood Pressure Position Sitting 11/01/19 17:47 Pulse Oximetry 100 11/01/19 17:47 Oxygen Delivery Method Room Air 11/01/19 17:47 Oxygen Flow Rate 0 11/01/19 17:47 Pain Level 6 11/01/19 17:47 Lab/Test Results Lab/Test Results: Laboratory Tests Range/Units 11/01/19 17:43 Urine Color (Yellow) Yellow Urine Clarity (Clear) Clear Urine pH (5-8) 5.5 Ur Specific Stanton (1.005-1.025) >= 1.030 H Urine Protein (Negative) mg/dL Negative Urine Ketones (Negative) mg/dL Trace H Urine Blood (Negative) Small H Urine Nitrite (Negative) Negative Urine Bilirubin (Negative) Negative Urine Urobilinogen (Up TO 0.2) EU/dL 0.2 Ur Leukocyte Esterase (Negative) Negative Urine Glucose (Negative) mg/dL 100 POC- Test(urine) Negative
[2019-11-01 18:02] LABS: Bacteria Many HPF (Negative); C & S Indicated? No/Sq. Contamination; Casts Negative LPF (Negative); Crystals Negative HPF (Negative); Epithelial Cells Many HPF (Negative); Mucus Negative (Negative); WBC 0-2 HPF (0-5)
[2019-11-01 18:13] LABS: Abs Immature Grans 0.03 10^3/uL (0.0-0.06); Absolute Basophil Count 0.02 10^3/uL (0.0-0.2); Absolute Eosinophil Count 0.08 10^3/uL (0.0-0.7); Absolute Lymphocyte Count 2.14 10^3/uL (1.2-3.4); Absolute Monocyte Count 0.64 10^3/uL (0.1-0.8); Absolute Neutrophil Count 7.22 10^3/uL (1.2-6.7); Basophils % 0.2; Eosinophils % 0.8; HCT 41.4 % (36.0-46.0); HGB 13.2 g/dL (11.2-15.7); Immature Grans % 0.3; Lymphocytes % 21.1; MCH 28.9 pg (27.0-33.0); MCHC 31.9 % (32.0-36.0); MCV 90.6 fL (80-95); MPV 10.1 fL (8.0-11.0); Monocytes % 6.3; Neutrophils % 71.3; Nucleated RBC 0 %; Platelet Count 316 10^3/uL (130-400); RBC 4.57 10^6/uL (3.93-5.22); RDW 13.2 % (11.7-14.6); RDW-SD 43.4 fL; WBC 10.13 10^3/uL (4.4-10.8)
[2019-11-01] MEDS: Ketorolac 30 MG/ML VIAL IVP (18:16)
[2019-11-01] MEDS: Normal Saline 1,000 ML 1000 ML IV (18:17)
[2019-11-01 18:25] LABS: Anion Gap 9.6 mmol/L (3-11); BUN 14 mg/dL (7-18); CO2 26.4 mmol/L (21.0-32.0); CREATININE 0.83 mg/dL (0.55-1.02); Calcium 8.9 mg/dL (8.5-10.1); Chloride 105 mmol/L (98-107); Glucose 100 mg/dL (74-106); Potassium 3.4 mmol/L (3.5-5.1); Sodium 141 mmol/L (136-145)
--- NOTE | 2019-11-01 18:58 | DI.VRAD_ITS ---
PROCEDURE INFORMATION: Exam: CT Abdomen And Pelvis Without Contrast Exam date and time: 11/01/2019 17:58 Age: 39 years old Clinical indication: Other: Flank pain TECHNIQUE: Imaging protocol: Computed tomography of the abdomen and pelvis without contrast. COMPARISON: CT Abdomen^ROUTINE ABDOMEN PELVIS WITH CONTRAST (Adult) 02/20/2018 09:39 FINDINGS: Liver: The visualized liver is unremarkable. Gallbladder and bile ducts: Cholecystectomy. Prominent common bile duct is stable probable benign reservoir effect. Pancreas: No ductal dilation. No masses. Spleen: No splenomegaly or focal lesions. Adrenals: No mass. Kidneys and ureters: Benign-appearing right renal cyst again seen. Minimal prominence of the renal pelves, decreased since prior. No calyceal dilation. No rene hydronephrosis. No renal or ureteral stones. Minor dilation of the left ureter adjacent to the left presumably ovarian structure. Stomach and bowel: No obstruction. No mucosal thickening. Appendix: No evidence of appendicitis. Intraperitoneal space: Trace edema in the cul-de-sac. No rene fluid collections. Vasculature: No abdominal aortic aneurysm. Lymph nodes: No significantly enlarged lymph nodes. Bladder: Unremarkable as visualized. Reproductive: Hysterectomy since the previous study. A new approximately 4 cm left presumably ovarian follicle with minor surrounding edema. Bones/joints: No acute fracture or subluxation. Soft tissues: Diastasis recti. IMPRESSION: 1. Hysterectomy since the previous study. 2. A new approximately 4 cm left presumably ovarian follicle with minor surrounding edema. Question a source of the patient's pain. Consider workup with pelvic ultrasound. 3. Minor dilation of the left ureter adjacent to the left presumably ovarian structure. However no rene hydronephrosis. 4. Additional findings as described. Dictated and Authenticated by: Gretel Weiss MD. Ordering:DAIANA Dey MD
[2019-11-01 19:18] VITALS: BP 112/71; PULSE 51; RESP 18; TEMP 36.8; O2SAT 100
[2019-11-01] MEDS: HYDROmorphone 2 MG/ML VIAL 0.5 MG IVP (19:25)
[2019-11-01 19:56] VITALS: BP 127/78; PULSE 59; RESP 16; O2SAT 100
== END 2019-11-01 20:00 | disposition home or self-care (01) ==
LOC: ER 20:08
PROVIDERS: Emergency Provider Emergency Medicine; PCP Internal Medicine
DX: N23 Unspecified renal colic (principal); R31.9 Hematuria, unspecified; Z97.5 Presence of (intrauterine) contraceptive device
CPT/HCPCS: 36415; 80048; 81025; 96361; 96374; 96375; 99284; 74176; 81003; 81015; 85025; J1885

== ENCOUNTER 2022-04-05 16:44 | Emergency (ER) | payer OTHER, SELFPAY ==
[2022-04-05 16:56] VITALS: BP 128/83; PULSE 53; RESP 16; TEMP 36.8; O2SAT 100
[2022-04-05 17:21] LABS: Bilirubin Negative (Negative); Blood Trace-lysed (Negative); Clarity Clear (Clear); Glucose Negative (Negative); Ketones Negative (Negative); Leukocyte Esterase Negative (Negative); Nitrite Negative (Negative); Urobilinogen 0.2 EU/dL (Up TO 0.2)
[2022-04-05 17:26] LABS: Bacteria Negative HPF (Negative); C & S Indicated? No; Casts Negative LPF (Negative); Crystals Negative HPF (Negative); Epithelial Cells Rare HPF (Negative); Mucus Negative (Negative); RBC 0-2 HPF (0-2); WBC Negative HPF (0-5)
--- NOTE | 2022-04-05 17:30 | DI.CT_ITS ---
Exam(s) CT ABDOMEN PELVIS WO EXAM: CT ABDOMEN PELVIS WO CLINICAL HISTORY: left flank and abs pain, hx of kidney stone. TECHNIQUE: Imaging Protocol: Axial computed tomography images with coronal and sagittal reformatted images were created and reviewed. CT CT RENAL COLIC WO from 11/01/2019 FINDINGS: ABDOMEN: Lung Bases: Normal where visualized. Liver: Normal density. No measurable mass. Gallbladder and biliary tract: Status post cholecystectomy. No significant biliary ductal dilatation . Pancreas: Normal density, no abnormal calcifications or inflammatory process. Spleen: Normal. Kidneys: Normal size, contour and axis.No radiodense stones or obstructive uropathy. There is a stabl e right renal cyst. Adrenal glands: No mass is seen. Lymph nodes: Within normal limits. Abdominal Aorta: Abdominal portion non-dilated. PELVIS: Bladder:Symmetric distention, no gross wall thickening. Bowel: No obstruction or bowel wall thickening. Appendix is unremarkable. Peritoneal cavity: No ascites, collection or mesenteric inflammatory response. No free air. Reproductive organs: Status post hysterectomy. There is a heterogeneous enlarged left adnexal structu re measuring 4.7 x 4.6 cm. It is in the location of the patient's ovary on prior examinations. There is mild inflammatory stranding associated with the structure. Bones: Within normal limits. Soft Tissues: Within normal limits. IMPRESSION: Heterogeneous 4.7 x 4.6 cm left adnexal structure. This likely is the ovary. Differential considerati ons include an ovarian mass, a hemorrhagic cyst or torsion. Pelvic ultrasound is recommended for furt her evaluation. RADIATION DOSE DELIVERED: 973.85mGy.cm Total DLP DATA REPOSITORY: All CT scans at this facility are submitted to the National Radiology Data Registry (NRDR) Dose Index Registry (DIR) with the [employer] ([employer]). RADIATION OPTIMIZATION: All CT scans at this facility use at least one of these dose optimization te chniques: automated exposure control; mA and/or kV adjustment per patient size (includes targeted exa ms where dose is matched to clinical indication); or iterative reconstruction.
--- NOTE | 2022-04-05 17:36 | W.ED.GENAD ---
Discharge Plan Disposition Patient Disposition: Home Condition: Stable Discharge Details Chief Complaint: FlankPain Clinical Impression: Pelvic mass Primary Care Provider: Cisco Rendon ED Provider: Marc Hammond Home Meds and New Rx's Prescriptions: No Action acetaminophen [Tylenol Extra Strength] 500 mg tablet 1,000 mg PO Q6H PRN ibuprofen 600 MG tablet 600 mg PO Q6H PRN (Reason: Pain) Qty: 20 0RF Discharge Instructions Additional Instructions: Please return for pelvic ultrasound tomorrow morning. [facility]up with [facility] for further evaluation of pelvic mass. Please return to the emergency department you have any worsening symptoms or any trouble obtaining close follow-up Medical Decision Making 41-year-old female presents with left-sided flank pain, no nausea no vomiting afebrile nontoxic. Microscopic hematuria seen on outside urinalysis. History of kidney stones in the past. High clinical suspicion for recurrent kidney stone. Lower suspicion for UTI or pyelonephritis. Will obtain CT abdomen pelvis, basic labs, fluids analgesia close reassessment disposition pending results 13: 20 evidence of left lower quadrant/pelvic mass. Counseled patient regarding findings and need for further work-up. We will schedule her for ultrasound of the pelvis tomorrow and follow-up with [facility] early next week. HPI General Date/Time Provider Initiated Documentation: 04/05/22 17:06. HPI Narrative: 41-year-old female history of kidney stones presents with left flank discomfort rating down to her lower abdomen, denies nausea or vomiting. History of stones that passed spontaneously. Found to have microscopic hematuria at outside facility. Referred here for CT abdomen to assess for kidney stone Related Data Home Medications Medication Instructions Recorded Confirmed ibuprofen 600 mg tablet 600 mg PO Q6H PRN Pain #20 tabs 11/30/16 04/05/22 acetaminophen 500 mg tablet 1,000 mg PO Q6H PRN 04/16/19 04/05/22 (Tylenol Extra Strength) Previous Rx's Medication Instructions Recorded ibuprofen 600 mg tablet 600 mg PO Q6H PRN Pain #20 tabs 11/30/16 Allergies Allergy/AdvReac Type Severity Reaction Status Date / Time No Known Allergies Allergy Verified 04/05/22 17:00 General Stated Complaint: FlankPain ALEX: 3 Review of Systems Narrative: Review of Systems Constitutional: negative Eyes: negative ENT: negative Cardiovascular: negative Respiratory: negative Gastrointestinal: negative : Flank pain Musculoskeletal: negative Skin: negative Neurologic: negative Psych: negative PFSH All Active Problems (Updated 04/05/22 @ 19:21 by Marc Hammond MD) Pelvic mass (Acute) Cystocele (Acute) Stage 1 Sensation of pressure in bladder area (Acute) Dysuria (Acute) Left ovarian cyst (Acute) LLQ pain (Acute) History of total abdominal hysterectomy (Acute) With bilateral salpingectomy. Ovaries conserved. Urinary incontinence (Chronic) sx of stress incontinence. Pt referred to Urology re: transobturator sling at time of hysterectomy. Fibroid uterus (Acute) 2016. 6cm 2018. larger - causing hydronephrosis Surgical History (Updated 09/18/19 @ 14:11 by Teresa Jimenez MD) History of cholecystectomy 2017 History of repair of ACL Hx of tooth extraction Family History Grandfather Colon cancer Social History Smoking/Tobacco Use Status: Former Tobacco Use Quit Date: 05/17/19 Tobacco: How many years used: 10 Quit status: has quit before Smoking risk assessment performed?: Yes Alcohol Intake: current Alcohol Intake frequency: a few times a month Alcohol type: beer and hard liquor Drug use: Never Substance use type: does not use Current gender identity: female Do you feel safe at home: Yes Do you feel safe in your relationship?: Yes Female Reproductive History Menstrual control method: progestin IUCD History History 3 Para 3 Hx # Term Pregnancies 3 Multiple births 0 Hx # Pregnancies 0 Ectopic pregnancies 0 AB induced Hx Number of Living Children 3 AB spontaneous 0 Exam Narrative Exam Narrative: Physical Examination General: alert, awake, cooperative, resting comfortably, no acute distress HEENT: normocephalic, atraumatic; PERRL, EOM intact, conjunctiva normal; no nasal discharge; moist mucous membranes, oral and pharyngeal mucosa normal, tolerating secretions Neck: supple, trachea midline; full ROM Chest: normal to inspection Respiratory: normal respiratory effort, speaking in full sentences, clear to auscultation, no wheezing, rales or rhonchi Cardiac: regular rate, regular rhythm, S1S2 intact, no murmurs rubs or gallops GI: abdomen soft, non-tender, non-distended; no palpable mass or hepatosplenomegaly Skin: no lesions, rashes or trauma appreciated Neuro: AAOx3, normal speech, moving all extremities Psych: Appropriate mood and affect Course Vital Signs Vital signs: Vital Signs Temperature 36.8 C 04/05/22 16:56 Pulse 53 L 04/05/22 16:56 Respiratory Rate 16 04/05/22 16:56 Blood Pressure 128/83 04/05/22 16:56 Pulse Oximetry 100 04/05/22 16:56 Temperature 36.8 C 04/05/22 16:56 Temperature Source Temporal Artery Scan 04/05/22 16:56 Pulse 53 L 04/05/22 16:56 Respiratory Rate 16 04/05/22 16:56 Respiratory Effort 04/05/22 16:59 Blood Pressure 128/83 04/05/22 16:56 Blood Pressure Position Sitting 04/05/22 16:56 Pulse Oximetry 100 04/05/22 16:56 Oxygen Delivery Method Nasal Cannula 04/05/22 16:56 Pain Level 7 04/05/22 16:56 Lab/Test Results Lab/Test Results: Laboratory Tests Range/Units 04/05/22 17:11 Urine Color (Yellow) Yellow Urine Clarity (Clear) Clear Urine pH (5-8) 6.0 Ur Specific [place] (1.005-1.025) 1.010 Urine Protein (Negative) mg/dL Negative Urine Ketones (Negative) mg/dL Negative Urine Blood (Negative) Trace-lysed H Urine Nitrite (Negative) Negative Urine Bilirubin (Negative) Negative Urine Urobilinogen (Up TO 0.2) EU/dL 0.2 Ur Leukocyte Esterase (Negative) Negative Urine RBC (0-2) HPF 0-2 Urine WBC (0-5) HPF Negative Ur Epithelial Cells (Negative) HPF Rare Urine Crystals (Negative) HPF Negative Urine Bacteria (Negative) HPF Negative Urine Casts (Negative) LPF Negative Urine Mucus (Negative) Negative Ur Culture Indicated? No Urine Glucose (Negative) mg/dL Negative PAWSS Have you Been Recently Intoxicated or Drunk Within the Last 30 days?: No Have you Ever Experienced Previous Episodes of Alcohol Withdrawal?: No Have you ever Experienced Withdrawal Seizures?: No Have you ever Experienced Delirium Tremens(DT)s?: No Have you ever undergone Alcohol Rehabilitation Treatment (i.e, inpt ot outpatient treatment programs)?: No Have you ever Experienced Blackouts?: No Have you ever Combined Alcohol with other Downers within the last 90 days?: No Have you ever Combined Alcohol with any other Substance of Abuse during the last 90 days?: No Result: 0
[2022-04-05] MEDS: Normal Saline 1,000 ML 1000 ML IV (17:47)
[2022-04-05] MEDS: Ketorolac 15 MG/ML VIAL IVP (17:51)
[2022-04-05 17:58] LABS: Abs Immature Grans 0.01 10^3/uL (0.0-0.06); Absolute Basophil Count 0.03 10^3/uL (0.0-0.2); Absolute Eosinophil Count 0.08 10^3/uL (0.0-0.7); Absolute Lymphocyte Count 2.53 10^3/uL (1.2-3.4); Absolute Monocyte Count 0.64 10^3/uL (0.1-0.8); Absolute Neutrophil Count 6.85 10^3/uL (1.2-6.7); Basophils % 0.3; Eosinophils % 0.8; HCT 41.3 % (36.0-46.0); HGB 13.6 g/dL (11.2-15.7); Immature Grans % 0.1; MCH 30.1 pg (27.0-33.0); MCHC 32.9 % (32.0-36.0); MCV 91 fL (80-95); MPV 10.1 fL (8.0-11.0); Monocytes % 6.3; Neutrophils % 67.5; Platelet Count 280 10^3/uL (130-400); RBC 4.52 10^6/uL (3.93-5.22); RDW 13.5 % (11.7-14.6); RDW-SD 45.3 fL; WBC 10.14 10^3/uL (4.4-10.8)
[2022-04-05 18:13] LABS: ALT 16 U/L (14-59); AST 15 U/L (15-37); Alkaline Phosphatase 72 U/L (46-116); Anion Gap 6.1 mmol/L (3-11); BUN 9 mg/dL (7-18); Bilirubin, Total 0.8 mg/dL (0.2-1.0); CO2 27.9 mmol/L (21.0-32.0); CREATININE 0.7 mg/dL (0.55-1.02); Calcium 8.9 mg/dL (8.5-10.1); Chloride 106 mmol/L (98-107); Estimated GFR 111.36 (mL/min/1.73m2); Glucose 77 mg/dL (74-106); Potassium 3.7 mmol/L (3.5-5.1); Sodium 140 mmol/L (136-145); Total Protein 7.2 g/dL (6.4-8.2)
--- NOTE | 2022-04-05 18:58 | DI.VRAD_ITS ---
PROCEDURE INFORMATION: Exam: CT Abdomen And Pelvis Without Contrast Exam date and time: 04/05/2022 6:39 PM Age: 41 years old Clinical indication: Abdominal pain; Flank; Left; Prior surgery; Surgery date: 6+ months; Surgery type: Hysterectomy; Additional info: Left flank and abs pain, HX of kidney stone TECHNIQUE: Imaging protocol: Computed tomography of the abdomen and pelvis without contrast. Radiation optimization: All CT scans at this facility use at least one of these dose optimization techniques: automated exposure control; mA and/or kV adjustment per patient size (includes targeted exams where dose is matched to clinical indication); or iterative reconstruction. COMPARISON: CT Abdomen^ROUTINE ABDOMEN PELVIS WITH CONTRAST (Adult) 02/20/2018 9:39 AM FINDINGS: Liver: Normal. No mass. Gallbladder and bile ducts: Prior cholecystectomy. No ductal dilation. Pancreas: Normal. No ductal dilation. Spleen: Normal. No splenomegaly. Adrenal glands: Normal. No mass. Kidneys and ureters: Right peripelvic renal cyst No hydronephrosis. Stomach and bowel: Unremarkable. No obstruction. No mucosal thickening. Appendix: No evidence of appendicitis. Intraperitoneal space: Unremarkable. No free air. No significant fluid collection. Vasculature: Unremarkable. No abdominal aortic aneurysm. Lymph nodes: Unremarkable. No enlarged lymph nodes. Urinary bladder: Unremarkable as visualized. Reproductive: Solid appearing lesion in the left adnexal region measuring up to 5 cm with minimal surrounding infiltration Bones/joints: Unremarkable. No acute fracture. Soft tissues: Unremarkable. IMPRESSION: Abnormal findings in the left lower quadrant which may represent an abnormal left ovary. Underlying torsion/solid lesion not excluded. Pelvic ultrasound recommended for further characterization Dictated and Authenticated by: Ruddy Moreno MD. Ordering:EMI Tran MD
[2022-04-05] MEDS: oxyCODONE 5 mg/Acetaminophen 325 mg TAB 3 TAB PO (19:33)
[2022-04-05 19:36] VITALS: BP 124/86; PULSE 54; RESP 12; O2SAT 94
--- NOTE | 2022-04-05 22:20 | NUR.NOTE ---
Referral to [facility] to f/u [facility]ian for suspicion of pelvic mass. DI req faxed to radiology for pelvic ultrasound to be done 04/06/22. Patient will f/u with ED after ultasound. Pelvic ultrasound instructions given to patient.Nursing Note:
== END 2022-04-05 19:40 | disposition home or self-care (01) ==
PROVIDERS: Emergency Provider Emergency Medicine; PCP Internal Medicine
DX: R19.00 Intra-abdominal and pelvic swelling, mass and lump, unspecified site (principal); R31.29 Other microscopic hematuria; Z87.442 Personal history of urinary calculi; Z90.49 Acquired absence of other specified parts of digestive tract
CPT/HCPCS: 80053; 81025; 96361; 96374; 99284; 74176; 81003; 81015; 85025; J1885